=== PATIENT | female | born 1960 | race American Indian/Alaskan Native ===

== ENCOUNTER 2016-04-22 13:25 | Outpatient (CLI) | payer BC ==
--- NOTE | 2016-04-22 16:38 | XRay Report ---
Cervical spine 3 views: History: Radiculopathy Findings: Normal height of vertebral bodies. Decrease in height of C5-C6 and C6-7 interspace. Sclerotic articular surfaces with peripheral osteophytes suggestive of cervical spondylosis. No fracture. Normal prevertebral soft tissue. Impression: Spondylosis lower cervical spine.
== END 2016-04-22 13:26 | disposition home or self-care (01) ==
LOC: SPVIMAG 13:25
PROVIDERS: ATTEND Internal Medicine
DX: M47.892 Other spondylosis, cervical region (principal); M25.78 Osteophyte, vertebrae
CPT/HCPCS: 72040